=== PATIENT | female | born 1980 | race Hispanic/Latino ===

== ENCOUNTER → 2022-11-16 | Day surgery (SDC) | payer OTHER ==
[~2022-11-16] MED LIST: LACTATED RINGER'S 1,000 ML ONE; LIDOCAINE HCL 2% LOCAL INJ 5 ML SDV VIAL INJ ONE; PROPOFOL IV EMULSION 10 MG/ML 20 ML VIAL ONE
[2022-11-16 08:27] VITALS: BP 128/72; PULSE 80; RESP 18; O2SAT 99
== END | disposition home or self-care (01) ==
LOC: ENDO 06:01 → EDBD 08:30
PROVIDERS: ATTEND Surgery
DX: K21.9 Gastro-esophageal reflux disease without esophagitis (principal); K20.90 Esophagitis, unspecified without bleeding; K44.9 Diaphragmatic hernia without obstruction or gangrene; K90.9 Intestinal malabsorption, unspecified; Z98.84 Bariatric surgery status; G47.33 Obstructive sleep apnea (adult) (pediatric); E66.01 Morbid (severe) obesity due to excess calories; F17.210 Nicotine dependence, cigarettes, uncomplicated; Z68.33 Body mass index [BMI] 33.0-33.9, adult
CPT/HCPCS: 43239; 81025; 88305; J2001; J2704; J7121; 43235